=== PATIENT | female | born 1965 | race Caucasian/White ===

== ENCOUNTER → 2019-12-25 13:41 | Outpatient (BNVA) | payer OTHER, SELFPAY | PROVIDERS: Visit Provider Orthopaedic Surgery | DX: M77.11 Lateral epicondylitis, right elbow (principal) | CPT/HCPCS: 20605; 99212; J1020 ==

== ENCOUNTER 2020-09-30 09:00 | Outpatient (REF) | payer OTHER, SELFPAY ==
--- NOTE | ~2020-09-30 | MM_ITS ---
EXAMINATION: MM SCREENING DIGITAL BREAST TOMOSYNTHESIS, BILATERAL CLINICAL INFORMATION: Screening. Asymptomatic. The lifetime risk of breast cancer based on the Tyrer-Cuzick Model is 7%. COMPARISON: Mammography: 04/11/2018, 06/02/2016 TECHNIQUE: Digital breast tomosynthesis is performed in both the craniocaudal and mediolateral oblique views along with computer-aided detection (CAD). Synthesized 2D images are generated from the tomosynthesis. Additional bilateral exaggerated CC views are provided. FINDINGS: The breasts are heterogeneously dense, which may obscure small masses (ACR BI-RADS breast composition Category c). Parenchymal pattern is similar to prior studies. Dense breast tissue composition is predominantly in the upper outer quadrants. There is no developing density. No significant mass or architectural abnormality. There is scattered round and rim calcifications. The group of 5-6 calcifications are now demonstrated posterior 3:30 o'clock right breast likely benign. Patient will be recalled to further characterize with magnification views. MM/MM tomosynthesis screening BI IMPRESSION: 1. Right: Group of 5-6 calcifications posterior 3:30 o'clock position, likely benign. 2. Left: No mammographic evidence of malignancy. ASSESSMENT: BI-RADS 0: Incomplete - Need Additional Imaging Evaluation RECOMMENDATION: 1. Additional views of the right breast (magnification medial CC, magnification LM). 2. Radiology department staff will contact the patient for additional imaging. This patient's information was entered into a reminder system with a target due date for their next mammogram.
== END 2020-09-30 09:01 | disposition home or self-care (01) ==
LOC: HO.MAMMO 09:00
PROVIDERS: Visit Provider Internal Medicine
DX: Z12.31 Encounter for screening mammogram for malignant neoplasm of breast (principal)
CPT/HCPCS: 77063; 77067

== ENCOUNTER 2020-10-20 09:09 | Outpatient (REF) | payer OTHER, SELFPAY ==
--- NOTE | ~2020-10-20 | MM_ITS ---
EXAMINATION: MM DIAGNOSTIC DIGITAL MAMMOGRAPHY, RIGHT CLINICAL INFORMATION: Recall from screening for calcifications posterior 3 o'clock position right breast. COMPARISON: Mammography: 09/30/2020, 04/11/2018, 06/02/2016, 10/08/2014 TECHNIQUE: Digital mammography is performed in the following views: Magnification CC, magnification LM x4. FINDINGS: The breasts are heterogeneously dense, which may obscure small masses (ACR BI-RADS breast composition Category c). The additional magnification views confirm loosely grouped calcifications posterior 3:00 right breast. These are relatively coarse. There are other coarse calcifications in both breasts. This may represent an area fibroadenomatous change. Patient will be reassessed again in 6 months to include magnification views. Results are discussed with the patient at time of visit. MM/MM added views RT IMPRESSION: Loosely grouped relatively coarse calcifications posterior medial right breast possibly early fibroadenomatous change. ASSESSMENT: BI-RADS 3: Probably Benign RECOMMENDATION: Diagnostic right mammography in 6 months. This patient's information was entered into a reminder system with a target due date for their next mammogram.
== END 2020-10-20 09:10 | disposition home or self-care (01) ==
LOC: HO.MAMMO 09:09
PROVIDERS: Visit Provider Internal Medicine
DX: R92.1 Mammographic calcification found on diagnostic imaging of breast (principal)
CPT/HCPCS: 77065

== ENCOUNTER 2021-05-05 12:32 | Outpatient (REF) | payer OTHER, SELFPAY ==
--- NOTE | ~2021-05-05 | MM_ITS ---
EXAMINATION: MM DIAGNOSTIC DIGITAL BREAST TOMOSYNTHESIS, RIGHT CLINICAL INFORMATION: Short interval six-month follow-up probable benign calcifications posterior 3:00 right breast. The lifetime risk of breast cancer based on the Tyrer-Cuzick Model is 9%. COMPARISON: Mammography: 10/20/2020, 09/30/2020 (BI-RADS 0), 04/11/2018, 06/02/2016 TECHNIQUE: Digital breast tomosynthesis is performed in both the craniocaudal and mediolateral oblique views along with computer-aided detection (CAD). Synthesized 2D images are generated from the tomosynthesis. Additional magnification images are obtained in the CC, MLO, and LM x4 views. FINDINGS: The breasts are heterogeneously dense, which may obscure small masses (ACR BI-RADS breast composition Category c). There is no interval mass or architectural abnormality. Scattered benign coarse and rim calcifications are again seen. The loosely grouped calcifications posterior 3:00 position 5-6 in number are stable and may represent fibroadenomatous change. They will be reassessed again at time of annual bilateral mammography, due in 6 months. Results are provided to the patient at time of visit by the technologist. MM/MM tomosynthesis diagnostic RT IMPRESSION: Calcifications for follow-up posterior 3:00 position are stable, possibly fibroadenomatous change. ASSESSMENT: BI-RADS 3: Probably Benign RECOMMENDATION: Diagnostic mammography at time of annual bilateral exam, due in 6 months. This patient's information was entered into a reminder system with a target due date for their next mammogram.
== END 2021-05-05 12:33 | disposition home or self-care (01) ==
LOC: HO.MAMMO 12:32
PROVIDERS: PCP Internal Medicine; Visit Provider Internal Medicine
DX: R92.1 Mammographic calcification found on diagnostic imaging of breast (principal)
CPT/HCPCS: 77061; 77065

== ENCOUNTER 2021-05-12 09:12 | Outpatient (REF) | payer OTHER, SELFPAY ==
[2021-05-12 09:38] LABS: MANUAL DIFF FLAG NO
[2021-05-12 10:08] LABS: Basophils Percent Auto 0.7 % (0-2); Eosinophils Absolute Auto 0.1 X10*3/uL (0.0-0.4); Eosinophils Percent Auto 1.6 % (0-4); Hematocrit 38.1 % (37.0-47.0); Hemoglobin 12.8 g/dl (12.0-16.0); Imm Gran Abs Auto 0.01 X10*3/uL (0.00-0.03); Imm Gran Pct Auto 0.2 % (0.0-0.4); Lymphocytes Absolute Auto 2.3 X10*3/uL (1.2-4.9); Lymphocytes Percent Auto 41.2 % (20-40); Mean Corpuscular HGB Conc 33.6 g/dl (31.0-35.0); Mean Corpuscular Hemoglobin 28.6 pg (27.0-33.0); Mean Corpuscular Volume 85.2 fL (80.0-98.0); Mean Platelet Volume 10.7 fL (9.4-12.3); Monocytes Absolute Auto 0.4 X10*3/uL (0.1-1.2); Neutrophils Absolute Auto 2.7 x10*3/uL (2.0-8.3); Neutrophils Percent Auto 49.3 % (45-73); Platelet Count 208 X10*3/uL (160-400); Red Blood Count 4.47 X10*6/uL (4.20-5.50); Red Cell Distribution Width 13.9 % (11.0-16.0); White Blood Count 5.5 X10*3/uL (4.8-10.8)
[2021-05-12 10:40] LABS: Alanine Aminotransferase 22 U/L (0-31); Albumin Level 3.9 g/dL (3.5-5.0); Alkaline Phosphatase 78 U/L (39-117); Anion Gap 9 (12-20); Aspartate Amino Transferase 21 U/L (5-31); Blood Urea Nitrogen 12 mg/dL (9-16); Calcium 9.3 mg/dL (8.4-10.2); Carbon Dioxide 30 mmol/L (22-29); Chloride 106 mmol/L (96-108); Cholesterol 144 mg/dL; Estimated Glomerular Filt Rate > 60; Glucose Fasting 94 mg/dL (60-99); HDL Cholesterol 49 mg/dL; LDL Cholesterol Calculated 84 mg/dl; Potassium 4.3 mmol/L (3.3-5.1); Sodium 141 mmol/L (135-145); Total Protein 6.6 g/dL (6.5-8.0); Triglycerides 58 mg/dL
== END 2021-05-12 09:13 | disposition home or self-care (01) ==
LOC: HO.LAB 09:12
PROVIDERS: PCP Internal Medicine; Visit Provider Nurse Practitioner Family
DX: Z00.00 Encounter for general adult medical examination without abnormal findings (principal); Z13.220 Encounter for screening for lipoid disorders; R42 Dizziness and giddiness; E78.00 Pure hypercholesterolemia, unspecified
CPT/HCPCS: 36415; 80053; 80061; 85025

== ENCOUNTER 2021-08-12 08:50 | Outpatient (REF) | payer OTHER, SELFPAY ==
[2021-08-12 09:52] LABS: COVID-19 Test Negative (Negative); IDNOW Serial# 16C4AD1C
== END 2021-08-12 08:51 | disposition home or self-care (01) ==
LOC: HO.LAB 08:50
PROVIDERS: Visit Provider Internal Medicine
DX: Z20.822 Contact with and (suspected) exposure to COVID-19 (principal)
CPT/HCPCS: 87635; C9803

== ENCOUNTER 2021-10-06 08:46 | Outpatient (REF) | payer OTHER, SELFPAY ==
--- NOTE | ~2021-10-06 | MM_ITS ---
EXAMINATION: MM DIAGNOSTIC DIGITAL BREAST TOMOSYNTHESIS, BILATERAL CLINICAL INFORMATION: Due for yearly. Also follow-up probable benign calcifications posterior medial right breast. The lifetime risk of breast cancer based on the Tyrer-Cuzick Model is 11%. COMPARISON: Mammography: 05/05/2021, 10/20/2020, 09/30/2020 (BI-RADS 0), 04/11/2018 TECHNIQUE: Digital breast tomosynthesis is performed in both the craniocaudal and mediolateral oblique views along with computer-aided detection (CAD). Synthesized 2D images are generated from the tomosynthesis. Additional magnification views of the right breast are obtained in CC, ML x3, and LM views. FINDINGS: The breasts are heterogeneously dense, which may obscure small masses (ACR BI-RADS breast composition Category c). Parenchymal pattern is similar to prior exams and there is no interval mass or architectural abnormality or developing density. There are scattered bilateral benign round and some coarse calcifications again seen. The calcifications for follow-up posterior medial right breast show no significant changes. They will be reassessed again at time of next bilateral annual mammography, due in one year. The axilla and skin contours are unremarkable. Results are provided to the patient at time of visit by the technologist. MM/MM tomosynthesis diagnostic BI IMPRESSION: -No mammographic evidence of malignancy. -No significant changes. Benign-appearing calcifications posterior medial right breast. ASSESSMENT: BI-RADS 3: Probably Benign RECOMMENDATION: Diagnostic mammography at time of next annual exam, due in 12 months. This patient's information was entered into a reminder system with a target due date for their next mammogram.
== END 2021-10-06 08:47 | disposition home or self-care (01) ==
LOC: HO.MAMMO 08:46
PROVIDERS: Visit Provider Internal Medicine
DX: R92.1 Mammographic calcification found on diagnostic imaging of breast (principal)
CPT/HCPCS: 77062; 77066

== ENCOUNTER 2022-02-11 12:02 | Day surgery (SDC) | payer OTHER, SELFPAY ==
[2021-10-28 13:26] VITALS: BMI 25.4
--- NOTE | 2022-02-10 14:15 | HO.ANESPROP2 ---
Documented by User: Diane Hurley NP 02/10/22 14:15 HPI - Anesthesia Eval Consult details Narrative: 56yo F for Colonoscopy PMFSH Active Problems Active Problems: All Active Problems (Updated 10/28/21 @ 13:16 by Kandi Jara RN) Lateral epicondylitis, right elbow (Acute) Physical exam (Acute) Vertigo (Acute) Constipation (Acute) Overweight (BMI 25.0-29.9) (Acute) Depression (Acute) Constipation by delayed colonic transit (Acute) Ear pain (Acute) Sinusitis, acute (Acute) Past Medical History Medical History Constipation by delayed colonic transit Depression Ear pain Elevated cholesterol Sinusitis, acute Surgical History Surgical History H/O colonoscopy History of endometrial ablation History of tubal ligation Hx of hemorrhoidectomy Previous section Social History Social History Housing: House Alcohol intake: never Patient Tobacco Use Status: Never used Tobacco e-Cigarette/Vaping Use: Never Used Second Hand Smoke Exposure: No Use of substances other than those prescribed or required for medical reasons: No Are you DNR?: No Advance Directives: No Advance Directives Information Provided: Yes Current occupational status: unemployed Current occupation: [employer] Cognitive needs: No Hearing needs: No Vision needs: Yes (glasses) Meds Allergies Allergy/AdvReac Type Severity Reaction Status Date / Time buspirone AdvReac Unknown spots Verified 04/28/21 09:50 Exam Exam Date and Time: February 10, 2022 1415 Height,Weight and Vital Signs: Height 4 ft 9.5 in Weight 54.431 kg Assessment and Plan Assessment Anesthesia Assessment: Chart Reviewed Documented by User: Liza Russo MD 02/11/22 13:59 PMFSH Past Medical History Medical History Constipation by delayed colonic transit Depression Ear pain Elevated cholesterol Sinusitis, acute Family History Family history of problems with anesthesia: No Surgical History Surgical History H/O colonoscopy History of endometrial ablation History of tubal ligation Hx of hemorrhoidectomy Previous section History of Problems with Anesthesia: No Social History Social History Housing: House Alcohol intake: never Patient Tobacco Use Status: Never used Tobacco e-Cigarette/Vaping Use: Never Used Second Hand Smoke Exposure: No Use of substances other than those prescribed or required for medical reasons: No Are you DNR?: No Advance Directives: No Advance Directives Information Provided: Yes Current occupational status: unemployed Current occupation: [employer] Cognitive needs: No Hearing needs: No Vision needs: Yes (glasses) Meds Allergies Allergy/AdvReac Type Severity Reaction Status Date / Time buspirone AdvReac Unknown spots Verified 04/28/21 09:50 Exam Height,Weight and Vital Signs: Height 4 ft 9.5 in Weight 54.431 kg Vital Signs Temp Pulse Resp BP Pulse Ox O2 Del Method 98.5 F 87 16 123/61 97 02/11/22 12:38 02/11/22 12:38 02/11/22 12:38 02/11/22 12:38 02/11/22 12:38 02/11/22 12:38 Airway Mallampati Class: I TM Dist: >3cm Neck ROM: Full Loose/Missing/Broken Teeth: No (Denies broken, loose, missing teeth) Heart: RRR Lungs: CTAB Assessment and Plan Assessment Anesthesia Assessment: Anesthesia Plan Discussed Final Anesthetic Review Family History of Problems with Anesthesia: No History of Problems with Anesthesia: No NPO: Yes ASA Class: II Final Preanesthetic Review: No Changes in Pt Med Stat, Meds/Allgs Chart Reviewed, Consent Obtained/Reviewed and Anes Risks/Benef Reviewed Patient Risk: Low Procedure Risk: Low Assessment/Block/Sedation in SS: Assess/Block/Sedation-SS Anesthetic Plan Anesthetic Plan: MAC: Disposition: Standard PACU
[2022-02-11 12:27] VITALS: BMI 24.6
[2022-02-11 12:38] VITALS: BP 123/61; PULSE 87; RESP 16; TEMP 36.9; O2SAT 97
[2022-02-11] MEDS: Lactated Ringers 1,000 ML 100 ML IVCONT (12:57)
--- NOTE | 2022-02-11 13:24 | MHC.SHP ---
Pre-Procedural Eval Section A Date of Service: 02/11/22 Section B Chief Complaint: screening Relevant Family History (Specify if Yes): No Relevant Social History: None Present Medications: see Short Stay Collaborative assessment Medical History: Significant History (Constipation by delayed colonic transit Depression Ear pain Elevated cholesterol Sinusitis, acute) History of Previous Operations: Relevant previous surgery/procedure and date(s) (H/O colonoscopy History of endometrial ablation History of tubal ligation Hx of hemorrhoidectomy Previous section) Allergies: Allergies Allergy/AdvReac Type Severity Reaction Status Date / Time buspirone AdvReac Unknown spots Verified 04/28/21 09:50 Review of Systems Sugical H&P ROS: Negative: Constitution, Cardiovascular, Respiratory, Neurological, Psychiatric, Hem-Onc, Allergic/Immunologic, Gastrointestinal, Genitourinary, Musculoskeletal, Integumentary, Endocrine and Eyes/Ears/Nose/Throat Exam Surgical H&P Exam: Normal: HEENT, Normal: Heart, Normal: Lungs, Normal: Extremities, Normal: Abdomen, Normal: Skin and Normal: Neurological Plan Diagnosis/Plan: Unchanged I have reviewed the history and physical and performed a pertinent physical examination on my patient. No changes have occurred unless specified. Time Spent With Patient Time: Total time managing care of this patient today ____ minutes.
--- NOTE | 2022-02-11 13:25 | W.PM.OPN ---
Operative Note Operative Note Date of Service: 02/11/22 Narrative: Operative Information Procedure Description: Colonoscopy Indication: screening Anesthesia: MAC COLONOSCOPY Instrument: Olympus variable stiffness pediatric scope 190L Colonoscopy Monitoring: Vital signs and clinical assessment, continuous EKG monitoring, Pulse oximetry, Carbon Dioxide monitoring and blood pressure monitoring were done throughout the procedure. Colon withdrawal time was 8 minutes. Procedure: The patient was placed in the left lateral decubitis position and pre-procedure medications were administered. After a digital rectal examination of the ano-rectum, the video colonoscope was inserted into the rectum and advanced through the colon to the cecum/TI. The colonoscope was slowly withdrawn in a retrograde panoramic fashion and the colon mucosa was carefully examined including a retroflexed view of the rectum. Findings and interventions are described below. Procedure Difficulty: easy Findings: Terminal Ileum-normal Cecum:normal Ascending Colon: normal Transverse Colon -normal Descending Colon:normal Sigmoid Colon: mild diverticulosis Rectum: Retroflexion with small internal hemorrhoids, grade I Anorectum - normal Colon preparation: [place] Bowel Preparation Scale Right colon; 3 Transverse colon: 3 Left colon; 2 (0 = Unprepared colon segment with mucosa not seen due to solid stool that cannot be cleared. 1 = Portion of mucosa of the colon segment seen, but other areas of the colon segment not well seen due to staining, residual stool and/or opaque liquid. 2 = Minor amount of residual staining, small fragments of stool and/or opaque liquid, but mucosa of colon segment seen well. 3 = Entire mucosa of colon segment seen well with no residual staining, small fragments of stool or opaque liquid) Impression and Post Procedure Diagnosis: internal hemorrhoids diverticular disease Plan: High fiber diet leaflet Avoid straining at stool, epsom salts and sitz bath, anusol supps or cream Repeat Colonoscopy in 10 years or earlier if clinically indicated Above findings were reviewed with the patient and relevant handouts were provided if indicated.
[2022-02-11 13:56] VITALS: BP 103/61; PULSE 82; RESP 15; TEMP 37; O2SAT 98
[2022-02-11 14:10] VITALS: BP 113/64; PULSE 82; RESP 16; O2SAT 98
[2022-02-11 14:25] VITALS: BP 117/68; PULSE 84; RESP 16; O2SAT 99
[2022-02-11 14:41] VITALS: BP 119/61; PULSE 81; RESP 16; TEMP 36.9; O2SAT 99
== END 2022-02-11 15:08 | disposition home or self-care (01) ==
PROVIDERS: PCP Internal Medicine; Visit Provider Internal Medicine Gastroenterology
PROC: 0DJD8ZZ Inspection of Lower Intestinal Tract, Via Natural or Artificial Opening Endoscopic (ICD-10-PCS; CPT 45378; principal; 2022-02-11 13:40)
DX: Z12.11 Encounter for screening for malignant neoplasm of colon (principal); K57.30 Diverticulosis of large intestine without perforation or abscess without bleeding; K64.0 First degree hemorrhoids; K59.01 Slow transit constipation; E78.00 Pure hypercholesterolemia, unspecified; J01.90 Acute sinusitis, unspecified; Z79.899 Other long term (current) drug therapy; Z88.8 Allergy status to other drugs, medicaments and biological substances
CPT/HCPCS: G0121

== ENCOUNTER 2022-12-08 13:44 | Outpatient (AMB) | payer OTHER, SELFPAY ==
--- NOTE | 2022-12-08 13:45 | AM.OFFWIN_ITS ---
<Statement entered by Leticia Batista, JANEEN - 12/13/22 08:55> I did not see this patient. Intake Vital Signs 12/08/22 13:56 Weight 120 lb BP 120/76 Blood Pressure Location Rt brachial Position Sitting Pulse 77 Pulse Source Pulse Oximeter Temp 98.2 F Temp Source Temporal Artery Scan Pulse Oximetry (%) 99 Oxygen Delivery Method Room Air Intake Visit Reasons: EP Covid Symptoms over a month Intake Note: Pt is here c/o chest congestion and a bad cough post COVID. Patient Tobacco Use Status: Never used Tobacco Allergies buspirone Adverse Reaction (Unknown, Verified 12/08/22 13:46) spots Do you need a note to return to daycare/school/sports/work: No HPI HPI Comments History of Present Illness Details 57-year-old female presents for post COVID symptoms. Patient had Alvarez approximately 1 month ago in dealing with prolonged cough does endorse some chest heaviness with cough denies any other symptoms PFSH Medical History Constipation by delayed colonic transit Depression Ear pain Elevated cholesterol Sinusitis, acute Surgical History H/O colonoscopy History of endometrial ablation History of tubal ligation Hx of hemorrhoidectomy Previous section Social History Housing: House Alcohol intake: never Patient Tobacco Use Status: Never used Tobacco e-Cigarette/Vaping Use: Never Used Second Hand Smoke Exposure: No Current occupational status: unemployed Current occupation: [employer] Cognitive needs: No Hearing needs: No Vision needs: Yes (glasses) Review of Systems Card Details: chest tightness Resp Reports cough Physical Exam Vital Signs: Last Vital Signs Temp 98.2 F 12/08/22 13:56 Pulse 77 12/08/22 13:56 BP 120/76 12/08/22 13:56 Pulse Ox 99 12/08/22 13:56 Oxygen Delivery Method Room Air 12/08/22 13:56 Const General: cooperative, no acute distress and alert Orientation/consciousness: patient oriented x3 Limitations: no limitations HEENT Head: Yes normal to inspection Ears: hearing grossly normal bilaterally and external ears normal General nose exam: Normal external nose present Eyes General: appearance normal, both eyes and all related structures Neck Neck: Yes normal visual inspection Chest Chest palpation & inspection: normal inspection of the chest Resp Effort & Inspection: normal respiratory effort, able to speak in complete sentences and no audible wheezes Auscultation: clear to auscultation bilaterally Cardio Rate: regular rate Rhythm: regular rhythm GI Inspection: Yes normal to inspection Palpation (GI): Soft to palpation and nontender Skin General skin exam: no rashes or lesions noted Neuro General: patient oriented x3 Psych Appearance: grossly normal Mental Status: mental status grossly normal Speech and movement: Normal speech and movement present Affect: normal affect Attitude: cooperative Thought process: Normal thought process present Thought content: Normal thought content present Assessment & Plan Assessment & Plan (1) Post-COVID chronic cough: Code(s): R05.3 - Chronic cough; U09.9 - Post covid-19 condition, unspecified Plan chronic cough likely due to post COVID will and on EKG for chest tightness EKG NSR @ rate of 75, intervals WNL, no ST segment changes Will trial benzonate Discharge instructions, follow up and treatment are discussed with patient in my usual fashion. Alternatives in treatment are also discussed. The patient will return for worsening symptoms or as needed. Advised that any labs/imaging ordered will be followed up on and contact made if further treatment needed. Counseled that patient's condition may require further evaluation and/or treatment. Symptoms of concern for worsening disorder discussed in detail in my customary manner. Patient does verbalize understanding of the plan, there are no apparent barriers to communication. The patient is given the opportunity to ask questions and have them answered to his/her satisfaction Orders: Orders AMB EKG-In Office 12/08/22 R07.9 - Chest pain, unspecified Medications: New benzonatate 100 mg PO TID 15 caps 0RF Coding Level of Care Code Est Pt Level 3 (80381) Diagnoses Post-COVID chronic cough R05.3; U09.9
[2022-12-08 13:56] VITALS: BP 120/76; PULSE 77; TEMP 36.8; O2SAT 99
== END 2022-12-08 14:23 | disposition home or self-care (01) ==
PROVIDERS: PCP Internal Medicine; Visit Provider Physician Assistant
DX: R05.3 Chronic cough (principal); U09.9 Post COVID-19 condition, unspecified
CPT/HCPCS: 99213

== ENCOUNTER 2023-07-05 10:39 | Outpatient (REF) | payer OTHER, SELFPAY ==
--- NOTE | ~2023-07-05 | MM_ITS ---
EXAMINATION: MM DIAGNOSTIC DIGITAL BREAST TOMOSYNTHESIS, BILATERAL CLINICAL INFORMATION: The patient presents for follow-up of right breast calcifications and annual screening of the left breast. COMPARISON: Mammography: This study is compared to prior mammograms dating back to 2019. TECHNIQUE: Digital breast tomosynthesis is performed in both the craniocaudal and mediolateral oblique views along with computer-aided detection (CAD). Synthesized 2D images are generated from the tomosynthesis. CC and lateral magnification imaging of the lower inner quadrant of the right breast. FINDINGS: The breasts are heterogeneously dense, which may obscure small masses (ACR BI-RADS breast composition Category c). There are no significant masses, abnormal calcifications, or other abnormalities. The calcifications at the lower inner quadrant of the right breast are benign. There are also a few, benign calcifications of the left breast. There are no mammographic signs of malignancy in either breast. MM/MM tomosynthesis diagnostic BI IMPRESSION: No mammographic signs of malignancy. Bilateral benign calcifications. ASSESSMENT: BI-RADS BI-RADS 2 - Benign Findings RECOMMENDATION: 1 year F/U Results were provided to the patient at time of visit by the technologist. This patient's information was entered into a reminder system with a target due date for their next mammogram.
== END 2023-07-05 10:40 | disposition home or self-care (01) ==
LOC: HO.MAMMO 10:39
PROVIDERS: PCP Internal Medicine; Visit Provider Internal Medicine
DX: R92.1 Mammographic calcification found on diagnostic imaging of breast (principal)
CPT/HCPCS: 77062; 77066

== ENCOUNTER → 2023-07-05 11:00 | Outpatient (BNV) | payer OTHER, SELFPAY | PROVIDERS: PCP Internal Medicine; Visit Provider Radiology Diagnostic Radiology | DX: R92.1 Mammographic calcification found on diagnostic imaging of breast (principal) | CPT/HCPCS: 77066; G0279 ==

== ENCOUNTER 2023-11-29 07:36 | Outpatient (REF) | payer OTHER, SELFPAY ==
[2023-11-29 08:01] LABS: MANUAL DIFF FLAG NO
[2023-11-29 08:23] LABS: Basophils Percent Auto 0.6 % (0-2); Eosinophils Absolute Auto 0.1 X10*3/uL (0.0-0.4); Eosinophils Percent Auto 1.9 % (0-4); Hematocrit 39.4 % (37.0-47.0); Hemoglobin 13.5 g/dl (12.0-16.0); Imm Gran Abs Auto 0.01 X10*3/uL (0.00-0.03); Imm Gran Pct Auto 0.2 % (0.0-0.4); Lymphocytes Absolute Auto 1.8 X10*3/uL (1.2-4.9); Lymphocytes Percent Auto 34.7 % (20-40); Mean Corpuscular HGB Conc 34.3 g/dl (31.0-35.0); Mean Corpuscular Hemoglobin 29.6 pg (27.0-33.0); Mean Corpuscular Volume 86.4 fL (80.0-98.0); Mean Platelet Volume 10.1 fL (9.4-12.3); Monocytes Absolute Auto 0.4 X10*3/uL (0.1-1.2); Monocytes Percent Auto 7.6 % (2-11); Neutrophils Absolute Auto 2.8 x10*3/uL (2.0-8.3); Platelet Count 227 X10*3/uL (160-400); Red Blood Count 4.56 X10*6/uL (4.20-5.50); Red Cell Distribution Width 13.8 % (11.0-16.0); White Blood Count 5.1 X10*3/uL (4.8-10.8)
[2023-11-29 09:21] LABS: Alanine Aminotransferase 16 U/L (0-31); Alkaline Phosphatase 77 U/L (39-117); Anion Gap 9 (12-20); Aspartate Amino Transferase 22 U/L (5-31); Bilirubin Total 0.8 mg/dL (0.0-1.0); Blood Urea Nitrogen 13 mg/dL (9-16); Calcium 9.6 mg/dL (8.4-10.2); Carbon Dioxide 31 mmol/L (22-29); Chloride 107 mmol/L (96-108); Cholesterol 227 mg/dL (<200); Estimated Glomerular Filt Rate > 60; Glucose Fasting 91 mg/dL (60-99); HDL Cholesterol 65 mg/dL (>40); Iron 84 mcg/dL (30-160); LDL Cholesterol Calculated 150 mg/dL (<100); Percent Iron Saturation 35 % (15-50); Sodium 143 mmol/L (135-145); Total Iron Binding Capacity 240 mcg/dL (228-428); Total Protein 6.8 g/dL (6.5-8.0); Triglycerides 61 mg/dL (<150); Unsaturated Iron Binding 156 ug/dL
[2023-11-29 09:25] LABS: Thyroid Stimulating Hormone 1.98 uIU/mL (0.32-4.0); Vitamin D 25-OH Total 37.2 ng/mL (>30)
[2023-11-29 09:42] LABS: Folate 16.1 ng/mL (> or = 4.0); Vitamin B12 1103 pg/mL (200-900)
== END 2023-11-29 07:37 | disposition home or self-care (01) ==
LOC: HO.LAB 07:36
PROVIDERS: PCP Internal Medicine; Visit Provider Internal Medicine
DX: D64.9 Anemia, unspecified (principal); R41.3 Other amnesia; E78.5 Hyperlipidemia, unspecified; E53.8 Deficiency of other specified B group vitamins; E55.9 Vitamin D deficiency, unspecified
CPT/HCPCS: 36415; 80053; 80061; 82306; 82607; 82746; 83540; 84443; 85025

== ENCOUNTER 2023-12-27 09:18 | Outpatient (AMB) | payer OTHER, SELFPAY ==
--- NOTE | 2023-12-27 09:27 | MHC.PC.OV ---
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 Accompanied by: Self / Same As Patient Allergies buspirone Adverse Reaction (Unknown, Verified 12/27/23 09:45) spots Medication List - Last Reconciled 12/27/23 by Janice Melendez MD meclizine 25 mg PO BID 30 days Tobacco use date assessed: 12/27/23 Dental Screening Dental Screen Date: 12/27/23 Did you have a dental visit in the last 12 months?: Yes Did you have a dental problem in the last 6 months where you did not have access to dental care?: No Was dental information given to patient?: Patient has dentist HPI HPI Comments History of Present Illness Details The patient is a 58-year-old female presenting for her physical exam with chronic vertigo and dizziness. 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 The patient mentions having meclizine at home for dizziness but does not use it regularly. There is no recent attempt at treatment as she prefers to manage it without medication. Constipation is another concern, with bowel movements occurring as infrequently as once every six days, causing abdominal discomfort and bloating. The patient occasionally uses stool softeners for relief. There is a history of depression and anxiety, with a PHQ-9 score of 16 indicating moderate severity. She experienced past suicidal thoughts but none currently. The patient tried counseling previously but discontinued, believing spirituality aids her better than counseling. Recently, her cholesterol levels were elevated, though lifestyle changes have lowered her cardiovascular risk to 1.6% over ten years. There was previous statin use, but it is currently unnecessary. Family history is significant for Alzheimer's disease in her father, cardiovascular disease in her mother, and melanoma in a maternal uncle, who passed from related complications. A cousin on her mother's side has breast cancer, increasing her long-term cancer vigilance. Her mammogram was done 2023 and was normal. Pap smear done last year and was normal as per patient. Colonoscopy done 2022 was normal and next colonoscopy should be 2032. [facility] Medical History Elevated cholesterol Sinusitis, acute Ear pain Constipation by delayed colonic transit Depression Surgical History Hx of hemorrhoidectomy History of endometrial ablation H/O colonoscopy History of tubal ligation Previous section Family History Father Alzheimer's disease Mother Cardiovascular disease Maternal Uncle Melanoma Social History Housing: House Alcohol intake: never Patient Tobacco Use Status: Never used Tobacco e-Cigarette/Vaping Use: Never Used Second Hand Smoke Exposure: No service: No Current occupational status: unemployed Current occupation: [employer] Cognitive needs: No Hearing needs: No Vision needs: Yes (glasses) Questionnaire PHQ-9 Over the last 2 weeks, how often have you been bothered by any of the following problems? 1. Little interest or pleasure in doing things: nearly every day 2. Feeling down, depressed, or hopeless: several days 3. Trouble falling or staying asleep, or sleeping too much: nearly every day 4. Feeling tired or having little energy: nearly every day 5. Poor appetite or overeating: several days 6. Feeling bad about yourself - or that you are a failure or have let yourself or your family down: several days 7. Trouble concentrating on things, such as reading the newspaper or watching television: nearly every day 8. Moving or speaking so slowly that other people could have noticed. Or the opposite - being so fidgety or restless that you have been moving around a lot more than usual: several days 9. Thoughts that you would be better off or of hurting yourself in some way: not at all Total score: 16 Depression Screening Interpretation: Positive (no suicidal thoughts) Depression Screening Follow-up: Existing condition and Follow-up Visit Requested Depression Screening Done: Yes 82337 - PHQ-9 Billing: Yes Source: Developed by Drs. Junior Saucedo, Freya Yang, Carlos Miller and colleagues, with an educational javad from [employer]. Thrive Questionnaire Date Thrive assessed: 12/27/23 I am a: Patient What is your living situation today?: I have a steady place to live Within the past 12 months, did the food you bought not last and you didn't have the money to get more?: Never true Within the past 12 months, did you worry whether your food would run out before you got money to buy more?: Never true Do you have trouble paying for medicines?: No Do you have trouble getting transportation to medical appointments?: No Do you have trouble paying your heating and electricity bill?: No Do you have trouble taking care of your child, family member or friend?: No Do you have trouble with day-to-day activities such as bathing, preparing meals, shopping, managing finances, etc.?: No Are you currently unemployed and looking for a job?: No Are you interested in more education?: No Please select the resources that you would like help with: None Currently or been in a relationship where the following occur: No concerns reported THRIVE Score: 0 AUDIT C Alcohol Use Questionnaire (AUDIT-C) 1. How often do you have a drink containing alcohol?: Never Total Score: 0 Score Reviewed/Action Taken: No DAVID-7 AMB Questionnaire DAVID-7 Date DAVID - 7 assessed: 12/27/23 Feeling nervous, anxious, or on edge: 2 = More than half the days Not being able to stop or control worryin = Not at all Worrying too much about different things: 2 = More than half the days Trouble relaxin = Nearly every day Being so restless that it is hard to sit still: 1 = Several days Becoming easily annoyed or irritable: 1 = Several days Feeling afraid as if something awful might happen: 3 = Nearly every day Total DAVID-7 score (0-4 normal; 5-9 mild; 10-14 moderate; 15-21 severe): 12 Source: Developed by Drs. Junior Saucedo, Freya Yang, Carlos Miller and colleagues, with an educational javad from [employer]. DAVID-7 Assessment Billing DAVID-7 Assessment Tool: DAVID-7 Assessment 41933 Review of Systems Const All systems reviewed & are unremarkable except as noted in HPI and below ENT Reports dizziness Card Denies chest pain at rest, Denies chest pain with activity, Denies edema, Denies irregular heart rhythm, Denies claudication, Denies dyspnea, Denies dyspnea on exertion, Denies orthopnea, Denies paroxysmal nocturnal dyspnea and Denies slow heart rate Resp Denies cough, Denies dyspnea and Denies dyspnea on exertion GI Denies abdominal pain, Denies change in bowel habits, Reports constipation, Denies excessive flatus, Denies nausea and Denies vomiting Neuro Reports dizziness Psych Reports anxiety and Reports depression Physical exam (Primary Care) Vital Signs: Last Vital Signs BP 102/68 12/27/23 09:28 BMI result Body Mass Index 24.9 Tobacco/Smoking Status: Tobacco use Status Tobacco use date assessed 12/27/23 12/27/23 09:34 Patient Tobacco Use Status Never used Tobacco 12/27/23 09:34 e-Cigarette/Vaping Use Never Used 12/27/23 09:34 PHQ-9: PHQ-9 Score PHQ-9: Total score 16 12/27/23 09:48 Depression Screening Interpretation: Positive (no suicidal thoughts) Depression Screening Follow-up: Existing condition and Follow-up Visit Requested Thrive Assessment: Date of Thrive Assessment Date Thrive assessed 12/27/23 12/27/23 09:34 Currently or been in a relationship where the following occur: No concerns reported [facility] Head: Yes normal to inspection, Yes normocephalic and Yes atraumatic Ears: external ears normal Eyes General: appearance normal, both eyes and all related structures Eyelids: Yes eyelids normal Conjunctivae: conjunctivae normal Neck Neck: Yes normal visual inspection and Yes supple Resp Effort & Inspection: normal respiratory effort Auscultation: clear to auscultation bilaterally Cardio Jugular venous distension: no JVD Rate: regular rate Rhythm: regular rhythm Heart sounds: S1 normal heart sound present and S2 normal heart sound present GI Inspection: Yes normal to inspection Palpation (GI): Soft to palpation and nontender Auscultation: normal bowel sounds Skin General skin exam: no rashes or lesions noted Neuro General: no focal motor deficits Extrem General: Yes full ROM Psych Appearance: grossly normal Coding Level of Care Code Est Pt Level 3 (54620) Est Pt Prev Care 40-64y(04092) Diagnoses Physical exam Z00.00 Vertigo R42 Mild major depression F32.0 Constipation by delayed colonic transit K59.01 Additional Codes DAVID-7 Assessment Billing - DAVID-7 Assessment Tool: DAVID-7 Assessment 84485 ([id number]) PHQ-9 - 56678 - PHQ-9 Billing: Yes ([id number]) Time Spent (min) 35 Assessment & Plan Assessment & Plan (1) Physical exam: Code(s): Z00.00 - Encounter for general adult medical examination without abnormal findings Category: Medical (2) Vertigo: Code(s): R42 - Dizziness and giddiness Category: Medical (3) Mild major depression: Code(s): F32.0 - Major depressive disorder, single episode, mild Category: Medical (4) Constipation by delayed colonic transit: Code(s): K59.01 - Slow transit constipation Category: Medical Plan - Vertigo: Schedule vestibular therapy. Consider regular evaluation and possible treatment adjustments once therapy is completed. - Constipation: Prescribe medication for use as needed. Encourage dietary modifications with increased fiber intake. - Depression and Anxiety: Continue current non-pharmacologic management. Discussed patient's preference for spiritual wellness. - Cardiovascular Health: Encourage diet modifications to lower cholesterol, focus on reducing egg yolk intake. Continue exercise regimen. - Family History Concerns: Educate on Alzheimer's preventive strategies including brain exercises. Maintain vigilance for genetic predispositions to cancer. - Allergies: Avoid buspirone and chart as part of medication history. Patient was informed and verbally consented to the use of an ambient scribe for clinic note documentation during this visit. I discussed the importance of dietary and lifestyle changes to manage elevated cholesterol, despite not needing statin therapy currently. We reviewed her family history's impact on health, particularly Alzheimer's and cardiovascular risk. I advised increasing fiber intake to manage constipation, and we considered scheduling vestibular therapy for her vertigo if desired. We explored her past and current mental health management, considering her spirituality as a rondon coping mechanism. Future screenings and health maintenance were endorsed, ensuring regular follow-ups for potential familial disease progression. Orders: Orders PT Evaluation and Treatment Today R42 - Dizziness and giddiness Medications: New sennosides (senna) 8.6 mg PO BEDTIME PRN 30 caps 0RF constipation 30 days Discontinued meclizine Discontinued Reason: Patient Completed Course 25 mg PO BID 30 days 60 tabs 6RF Patient Instructions: - Reduce intake of vitamin B12 supplements unless dietary intake is minimal. - Increase intake of fiber-rich foods to improve bowel regularity. - Schedule and attend vestibular therapy as discussed. - Maintain dietary changes for cholesterol and consider including more egg whites. - Continue engaging in cognitive exercises to mitigate Alzheimer's risk. - Follow the exercise regimen to support cardiovascular health. - Monitor and report any new or worsening symptoms, especially related to vertigo or mental health.
[2023-12-27 09:28] VITALS: BP 102/68; BMI 24.9
== END 2023-12-27 10:09 | disposition home or self-care (01) ==
LOC: HO.HMCH 09:18
PROVIDERS: PCP Internal Medicine; Visit Provider Internal Medicine
DX: Z00.00 Encounter for general adult medical examination without abnormal findings (principal); R42 Dizziness and giddiness; F32.0 Major depressive disorder, single episode, mild; K59.01 Slow transit constipation

== ENCOUNTER → 2023-12-27 09:18 | Outpatient (BNVA) | payer OTHER, SELFPAY | PROVIDERS: PCP Internal Medicine; Visit Provider Internal Medicine | DX: Z00.01 Encounter for general adult medical examination with abnormal findings (principal); F32.0 Major depressive disorder, single episode, mild; K59.01 Slow transit constipation; R42 Dizziness and giddiness | CPT/HCPCS: 96127; 99212; 99396 ==

== ENCOUNTER 2024-07-10 10:28 | Outpatient (REF) | payer OTHER, SELFPAY | END 2024-07-10 10:29 | disposition home or self-care (01) | LOC: HO.MAMMO 10:28 | PROVIDERS: PCP Internal Medicine; Visit Provider Internal Medicine | DX: Z12.31 Encounter for screening mammogram for malignant neoplasm of breast (principal) | CPT/HCPCS: 77063; 77067 ==

== ENCOUNTER → 2024-07-10 11:00 | Outpatient (BNV) | payer OTHER, SELFPAY | PROVIDERS: PCP Internal Medicine; Visit Provider Internal Medicine | DX: Z12.31 Encounter for screening mammogram for malignant neoplasm of breast (principal) | CPT/HCPCS: 77063; 77067 ==

== ENCOUNTER 2024-10-09 07:37 | Outpatient (REF) | payer OTHER, SELFPAY ==
[2024-10-09 07:56] LABS: MANUAL DIFF FLAG NO
[2024-10-09 08:25] LABS: Hematocrit 37.4 % (37.0-47.0); Hemoglobin 12.9 g/dl (12.0-16.0); Imm Gran Abs Auto 0.01 X10*3/uL (0.00-0.03); Imm Gran Pct Auto 0.2 % (0.0-0.4); Lymphocytes Absolute Auto 1.9 X10*3/uL (1.2-4.9); Mean Corpuscular HGB Conc 34.5 g/dl (31.0-35.0); Mean Corpuscular Hemoglobin 28.8 pg (27.0-33.0); Mean Corpuscular Volume 83.5 fL (80.0-98.0); NRBC Abs Auto 0.000 X10*3/uL (0.0-0.012); NRBC Pct Auto 0.0 /100WBC (0.0-0.2); Platelet Count 212 X10*3/uL (160-400); Red Blood Count 4.48 X10*6/uL (4.20-5.50); White Blood Count 5.0 X10*3/uL (4.8-10.8)
[2024-10-09 09:01] LABS: Alanine Aminotransferase 17 U/L (0-31); Albumin Level 4.1 g/dL (3.5-5.0); Alkaline Phosphatase 88 U/L (39-117); Anion Gap 8 (12-20); Aspartate Amino Transferase 23 U/L (5-31); Blood Urea Nitrogen 21 mg/dL (9-16); Calcium 9.0 mg/dL (8.4-10.2); Carbon Dioxide 31 mmol/L (22-29); Chloride 109 mmol/L (96-108); Cholesterol 224 mg/dL (<200); Estimated Glomerular Filt Rate > 60; HDL Cholesterol 63 mg/dL (>40); Potassium 4.1 mmol/L (3.3-5.1); Sodium 144 mmol/L (135-145); Total Protein 6.7 g/dL (6.5-8.0); Triglycerides 57 mg/dL (<150)
[2024-10-09 09:21] LABS: Thyroid Stimulating Hormone 2.05 uIU/mL (0.32-4.0)
[2024-10-09 09:24] LABS: Folate 12.5 ng/mL (> or = 4.0); Vitamin B12 774 pg/mL (200-900)
== END 2024-10-09 07:38 | disposition home or self-care (01) ==
LOC: HO.LAB 07:37
PROVIDERS: Visit Provider Internal Medicine
DX: E53.8 Deficiency of other specified B group vitamins (principal); R41.3 Other amnesia; E66.3 Overweight; E78.5 Hyperlipidemia, unspecified; R42 Dizziness and giddiness; D64.9 Anemia, unspecified
CPT/HCPCS: 36415; 80053; 80061; 82607; 82746; 84443; 85025

== ENCOUNTER 2024-10-23 08:53 | Outpatient (AMB) | payer OTHER, SELFPAY ==
[2024-10-23 08:59] VITALS: BP 112/66; PULSE 82; O2SAT 97; BMI 25.4
--- NOTE | 2024-10-23 08:59 | MHC.PC.OV ---
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 Accompanied by: Self / Same As Patient Allergies buspirone Adverse Reaction (Unknown, Verified 10/23/24 09:08) spots Medication List - Last Reconciled 10/23/24 by Janice Melendez MD linaclotide (Linzess) 72 mcg PO DAILY PRN 30 days sennosides (senna) 8.6 mg PO BEDTIME PRN 30 days Tobacco use date assessed: 12/27/23 Dental Screening Dental Screen Date: 10/23/24 Did you have a dental visit in the last 12 months?: No Did you have a dental problem in the last 6 months where you did not have access to dental care?: No Was dental information given to patient?: No HPI HPI Comments History of Present Illness Details This is a 59-year-old female with constipation, pure hypercholesterolemia and mild major depression that comes today complaining of benign paroxysmal positional vertigo that has been happening for years. She would like to be referred to vestibular therapy. Constipation stable with medications. She does have elevated cholesterol but her [place] risk score is less than 6% therefore no need for medications. She has a PHQ-9 of 5 showing mild recurrent major depression and declines any treatment or counseling. No chest pain or shortness on breath. [facility] Medical History (Updated 10/23/24 @ 09:33 by Janice Melendez MD) Elevated cholesterol Sinusitis, acute Ear pain Constipation by delayed colonic transit Depression Surgical History Hx of hemorrhoidectomy History of endometrial ablation H/O colonoscopy History of tubal ligation Previous section Family History Father Alzheimer's disease Mother Cardiovascular disease Maternal Uncle Melanoma Social History Housing: House Alcohol intake: never Patient Tobacco Use Status: Never used Tobacco e-Cigarette/Vaping Use: Never Used Second Hand Smoke Exposure: No service: No Current occupational status: unemployed Current occupation: [employer] Cognitive needs: No Hearing needs: No Vision needs: Yes (glasses) Questionnaire PHQ-9 Over the last 2 weeks, how often have you been bothered by any of the following problems? 1. Little interest or pleasure in doing things: several days 2. Feeling down, depressed, or hopeless: several days 3. Trouble falling or staying asleep, or sleeping too much: several days 4. Feeling tired or having little energy: several days 5. Poor appetite or overeating: not at all 6. Feeling bad about yourself - or that you are a failure or have let yourself or your family down: not at all 7. Trouble concentrating on things, such as reading the newspaper or watching television: several days 8. Moving or speaking so slowly that other people could have noticed. Or the opposite - being so fidgety or restless that you have been moving around a lot more than usual: not at all 9. Thoughts that you would be better off or of hurting yourself in some way: not at all Total score: 5 Depression Screening Interpretation: Positive Depression Screening Follow-up: Existing condition and Follow-up Visit Requested Depression Screening Done: Yes 53853 - PHQ-9 Billing: Yes Source: Developed by Drs. Junior Saucedo, Freya Yang, Carlos iMller and colleagues, with an educational javad from [employer]. Thrive Questionnaire Date Thrive assessed: 12/27/23 I am a: Patient What is your living situation today?: I have a steady place to live Within the past 12 months, did the food you bought not last and you didn't have the money to get more?: Never true Within the past 12 months, did you worry whether your food would run out before you got money to buy more?: Never true Do you have trouble paying for medicines?: No Do you have trouble getting transportation to medical appointments?: Yes Do you have trouble paying your heating and electricity bill?: No Do you have trouble taking care of your child, family member or friend?: No Do you have trouble with day-to-day activities such as bathing, preparing meals, shopping, managing finances, etc.?: Yes Are you currently unemployed and looking for a job?: No Are you interested in more education?: No Please select the resources that you would like help with: None THRIVE Score: 1 AUDIT C Alcohol Use Questionnaire (AUDIT-C) 1. How often do you have a drink containing alcohol?: Never 3. How often do you have six or more drinks on one occasion?: Never Total Score: 0 Score Reviewed/Action Taken: No DAVID-7 AMB Questionnaire DAVID-7 Date DAVID - 7 assessed: 10/23/24 Feeling nervous, anxious, or on edge: 1 = Several days Not being able to stop or control worryin = Not at all Worrying too much about different things: 0 = Not at all Trouble relaxin = Several days Being so restless that it is hard to sit still: 1 = Several days Becoming easily annoyed or irritable: 0 = Not at all Feeling afraid as if something awful might happen: 0 = Not at all Total DAVID-7 score (0-4 normal; 5-9 mild; 10-14 moderate; 15-21 severe): 3 Source: Developed by Drs. Juinor Saucedo, Freya Yang, Carlos Miller and colleagues, with an educational javad from [employer]. DAVID-7 Assessment Billing DAVID-7 Assessment Tool: DAVID-7 Assessment 94966 Review of Systems Const All systems reviewed & are unremarkable except as noted in HPI and below Card Denies chest pain at rest, Denies chest pain with activity, Denies edema, Denies irregular heart rhythm, Denies claudication, Denies dyspnea, Denies dyspnea on exertion, Denies orthopnea, Denies paroxysmal nocturnal dyspnea and Denies slow heart rate Resp Denies cough, Denies dyspnea and Denies dyspnea on exertion Physical exam (Primary Care) Vital Signs: Last Vital Signs Pulse 82 10/23/24 08:59 BP 112/66 10/23/24 08:59 Pulse Ox 97 10/23/24 08:59 BMI result Body Mass Index 25.4 Tobacco/Smoking Status: Tobacco use Status Tobacco use date assessed 12/27/23 10/23/24 09:05 Patient Tobacco Use Status Never used Tobacco 10/23/24 09:05 e-Cigarette/Vaping Use Never Used 10/23/24 09:05 PHQ-9: PHQ-9 Score PHQ-9: Total score 5 10/23/24 09:05 Depression Screening Interpretation: Positive Depression Screening Follow-up: Existing condition and Follow-up Visit Requested Thrive Assessment: Date of Thrive Assessment Date Thrive assessed 12/27/23 10/23/24 09:05 Resp Effort & Inspection: normal respiratory effort Auscultation: clear to auscultation bilaterally Cardio Jugular venous distension: no JVD Rate: regular rate Rhythm: regular rhythm Heart sounds: S1 normal heart sound present and S2 normal heart sound present Extrem General: Yes full ROM Coding Level of Care Code Est Pt Level 4 (30179) Complex EM visit Add On G2211 Diagnoses Mild major depression F32.0 Benign paroxysmal vertigo, unspecified ear H81.10 Constipation by delayed colonic transit K59.01 Pure hypercholesterolemia E78.00 Additional Codes DAVID-7 Assessment Billing - DAVID-7 Assessment Tool: DAVID-7 Assessment 21073 ([id number]) PHQ-9 - 64543 - PHQ-9 Billing: Yes ([id number]) Time Spent (min) 21 Assessment & Plan Assessment & Plan (1) Mild major depression: Code(s): F32.0 - Major depressive disorder, single episode, mild Category: Medical (2) Benign paroxysmal vertigo, unspecified ear: Code(s): H81.10 - Benign paroxysmal vertigo, unspecified ear Category: Medical (3) Constipation by delayed colonic transit: Code(s): K59.01 - Slow transit constipation Category: Medical (4) Pure hypercholesterolemia: Code(s): E78.00 - Pure hypercholesterolemia, unspecified Category: Medical Plan Continue current meds. Follow a high-fiber diet. Start low-cholesterol diet. Refer for vestibular therapy for her vertigo. Orders: Orders PT Evaluation and Treatment Today R42 - Dizziness and giddiness
== END 2024-10-23 09:16 | disposition home or self-care (01) ==
LOC: HO.HMCH 08:53
PROVIDERS: PCP Internal Medicine; Visit Provider Internal Medicine
DX: F32.0 Major depressive disorder, single episode, mild (principal); H81.10 Benign paroxysmal vertigo, unspecified ear; K59.01 Slow transit constipation; E78.00 Pure hypercholesterolemia, unspecified

== ENCOUNTER → 2024-10-23 08:53 | Outpatient (BNVA) | payer OTHER, SELFPAY | PROVIDERS: PCP Internal Medicine; Visit Provider Internal Medicine | DX: F32.0 Major depressive disorder, single episode, mild (principal); K59.00 Constipation, unspecified; E78.00 Pure hypercholesterolemia, unspecified; H81.10 Benign paroxysmal vertigo, unspecified ear; K59.01 Slow transit constipation | CPT/HCPCS: 96127; 99212 ==